=== PATIENT | female | born 1985 | race Caucasian/White ===

== ENCOUNTER 2021-11-20 21:11 | Outpatient (REF) | payer OTHER, SELFPAY ==
[2021-11-20 22:26] LABS: Free T4 Free Thyroxine* 0.64 ng/dL (0.70-1.85)
[2021-11-20 22:40] LABS: Thyroid Stimulating Hormone* 0.721 uIU/mL (0.270-4.20)
== END 2021-11-20 21:12 | disposition home or self-care (01) ==
LOC: LAB 21:11
DX: E03.9 Hypothyroidism, unspecified (principal)
CPT/HCPCS: 36415; 84439; 84443

== ENCOUNTER 2021-12-26 15:59 | Outpatient (CLI) | payer OTHER, SELFPAY ==
--- NOTE | 2021-12-26 15:45 | CRLHL7_ITS ---
For Patients: As a result of the Century Cures Act, medical imaging exams and procedure reports are released immediately into your electronic medical record. You may view this report before your referring provider. If you have questions, please contact your health care provider. INDICATION: First trimester scan, establish dates. COMPARISON: None. TECHNIQUE: Real-time guevara-scale imaging of the pelvis was performed. FINDINGS: Sonographic imaging demonstrates a single living intrauterine gestation. The embryo demonstrates a regular cardiac rate measuring 177 beats per minute. The embryo`s crown-rump length measurement of 4.3 cm corresponds to a gestational age of 11 weeks 1 day with a sonographic due date of 07/16/2022. There is a normal-appearing yolk sac. There are no gross abnormalities noted within the embryo at this early state of development. The gestational sac has a normal appearance. There is a right-sided perigestational hemorrhage measuring 3.1 x 0.8 x 0.6 cm and an inferior subchorionic hemorrhage measuring 1.3 x 0.6 x 0.8 cm. The amount of fluid within the sac appears appropriate for gestational age. The cervix is closed. The myometrium appears normal. The ovaries are of normal size. Corpus luteal cyst left ovary. There are no suspicious fluid collections noted in the cul-de-sac. IMPRESSION: Gestational age calculated at 11 weeks 1 day with a sonographic due date of 07/16/2022. There are 2 subchorionic hemorrhages measuring 3.1 x 0.8 x 0.6 cm and 1.3 x 0.6 x 0.8 cm. Dictated by Mauri Phelan MD @ 12/27/2021 9:06:17 AM (Electronically Signed)
== END 2021-12-26 16:00 | disposition home or self-care (01) ==
LOC: US 15:59
DX: Z34.91 Encounter for supervision of normal pregnancy, unspecified, first trimester (principal); O20.9 Hemorrhage in early pregnancy, unspecified; Z3A.11 11 weeks gestation of pregnancy
CPT/HCPCS: 76801

== ENCOUNTER 2022-07-02 18:52 | Emergency (ER) | payer OTHER, SELFPAY ==
[2022-07-02 18:56] VITALS: BP 115/76; PULSE 92; RESP 16; TEMP 36.9; O2SAT 98; BMI 24.2
[2022-07-02] MEDS: PSEUDOEPHEDRINE HCL 30 MG TABLET PO (19:51)
--- NOTE | 2022-07-02 20:03 | ED_ITS ---
HPI - General Adult General Chief complaint: Ear/Nose/Throat Problem Stated complaint: Possible double ear infection Time Seen by Provider: 07/02/22 18:56 History of Present Illness HPI narrative: 37-year-old woman presenting to the emergency department concern of ear fullness and discomfort muffled now feeling like cotton balls in her ears. Says she needs to be able to hear in her home. Began in the left ear and seems to have migrated to the right. She has not noted herself to be terribly congested. No facial pain. No environmental allergies noted. Has 5 kids 8 in under youngest is 18 months. She has not had any fever. Has been unwell with some URI symptoms and a little cough. No sore throat now. There has been strep present in the house. no dental problems. For her ear discomfort has tried olive oil with garlic in it. Also tried ibuprofen. Related Data Home Medications Medication Instructions Recorded Confirmed thyroid (pork) 90 mg tablet (RANGE TECHNICIAN 90 mg PO DAILY 07/02/22 07/02/22 Thyroid) Allergies Allergy/AdvReac Type Severity Reaction Status Date / Time No Known Drug Allergies Allergy Verified 07/02/22 19:05 Review of Systems Status of ROS: Reports: 6 or more systems reviewed and unremarkable except as noted in History and below Exam Narrative: Exam Narrative: Pleasant. Carefully casually groomed. Breathing easily. NAD. Does not sound particularly congested. Head is atraumatic. There is no facial swelling erythema or tenderness. Left TM is retracted. Ear canal looks to be clear. Right TM more inflamed but transparent. Also a little retracted. Mild in flammation without edema in the ear canal but no tenderness to manipulation of the tragus or pinna. Neck is supple without lymphadenopathy. no trismus. Oropharynx is without evidence of inflammation. Dentition in good repair. Lungs are clear. Heart with mildly elevated rate and in a normal rhythm. Const: Vital Signs, click to edit/add: Vital Signs - 24 hr 07/02/22 18:56 Temperature 98.5 F Pulse Rate [Right Pulse Oximeter] 92 Respiratory Rate 16 Blood Pressure [Ri ght Upper Arm] 115/76 Pulse Oximetry 98 Oxygen Delivery Me thod Room Air Documenting provider has reviewed patient's vital signs: yes Course Vital Signs Vital signs: Initial Vital Signs Temperature 98.5 F 07/02/22 18:56 Temperature Source Temporal Artery Scan 07/02/22 18:56 Pulse Rate 92 07/02/22 18:56 Respiratory Rate 16 07/02/22 18:56 Blood Pressure 115/76 07/02/22 18:56 Blood Pressure Mean 89 07/02/22 18:56 Blood Pressure Position Sitting 07/02/22 18:56 Pulse Oximetry 98 07/02/22 18:56 Oxygen Delivery Method 07/02/22 18:56 Vital Signs Temperature 98.5 F 07/02/22 18:56 Pulse Rate 92 07/02/22 18:56 Respiratory Rate 16 07/02/22 18:56 Blood Pressure 115/76 07/02/22 18:56 Pulse Oximetry 98 07/02/22 18:56 Oxygen Delivery Method 07/02/22 18:56 Temperature 98.5 F 07/02/22 18:56 Pulse Rate 92 07/02/22 18:56 Respiratory Rate 16 07/02/22 18:56 Blood Pressure 115/76 07/02/22 18:56 Pulse Oximetry 98 07/02/22 18:56 Oxygen Delivery Method 07/02/22 18:56 Medical Decision Making MDM Narrative Medical decision making narrative: Seems to be suffering from some eustachian tube dysfunction. I do not see evidence of secondary bacterial infection. Has not yet tried decongestants. Does not seem to have sinusitis nor otitis media or otitis externa. tmj does not appear to be source of pain. Due to time of night ordered shorter acting pseudoephedrine here in the emergency department prior to departure. See patient discharge plan Discharge Plan Discharge Clinical Impression: Dysfunction of both eustachian tubes, URI (upper respiratory infection) Patient Disposition: Home, Self-Care Condition: Stable Additional Instructions: Focus on hydration. Consider sleeping under the mist of a cool mist humidifier. Menthol vapors might be helpful. I would try 12 hour pseudoephedrine for drying and decongestion to help mobilize fluids. Since you do not seem to have a much nasopharyngeal congestion I am not sure whe ther nasal saline rinses would be that helpful but they would not hurt. Take the prednisone as 60 mg daily for 2 days; try to work toward earlier in the day dosing if possible, though take 1st dose as soon as possible. Then 40 mg daily for days 3 through 5. Both the pseudoephedrine and prednisone can be stimulating. Diphenhydramine can be drying for some persons and might also help with any potential wakefulness that pseudoephedrine and prednisone might cause. You might well not feel any stimulating effects either. Can take up to 800 mg of ibuprofen or up to 1000 mg of acetaminophen per dose. Return for marked increase in pain, fever. Be seen in 5- 7 days if just not improved. Prednisone from [facility]. Prescriptions: No Action thyroid (pork) [RANGE TECHNICIAN Thyroid] 90 mg tablet 90 mg PO DAILY Stand Alone Forms: [employer] Info Instructions
== END 2022-07-02 19:59 | disposition home or self-care (01) ==
LOC: ED 19:52
PROVIDERS: Emergency Provider Family Medicine
DX: H69.83 Other specified disorders of Eustachian tube, bilateral (principal); J06.9 Acute upper respiratory infection, unspecified
CPT/HCPCS: 99283; A9270

== ENCOUNTER 2022-12-31 20:59 | Emergency (ER) | payer OTHER, SELFPAY ==
[2022-12-31] VITALS (13 sets, daily range): BP systolic 104–123; BP diastolic 61–79; PULSE 65–84; RESP 16–18; TEMP 36.6; O2SAT 97–100; BMI 22.6
--- NOTE | 2022-12-31 21:41 | ED_ITS ---
HPI - Chest Pain General Time Seen by Provider: 21:41 <Bhargavi Deras MD - Last Filed: 01/07/23 01:19> Date Seen: 12/31/22 <Bhargavi Deras MD - Last Filed: 01/07/23 01:19> Chief Complaint: Chest Pain <Bhargavi Deras MD - Last Filed: 01/07/23 01:19> Stated Complaint: Chest pain <Bhargavi Deras MD - Last Filed: 01/07/23 01:19> Time Seen by Provider: 12/31/22 21:40 <Bhargavi Deras MD - Last Filed: 01/07/23 01:19> Source: patient and RN notes reviewed <Bhargavi Deras MD - Last Filed: 01/07/23 01:19> Mode of arrival: ambulatory <Bhargavi Deras MD - Last Filed: 01/07/23 01:19> Limitations: no limitations <Bhargavi Deras MD - Last Filed: 01/07/23 01:19> History of Present Illness HPI narrative: This 37-year-old female is coming in with substernal to left-sided chest pain that started tonight while sitting on the couch. She was just sitting there quietly with her children. She started having pain in the chest. She has had gas pain before where she has eaten something wrong it will build. This feels different. It is in the left-sided chest, she does get some intermittent building and worsening. It is not really radiating anywhere. She can feel little discomfort on the left costochondral junction but it does not completely reproduce the pain. She is not short of breath with it. She has not had any cough or cold symptoms. No fevers chills. No nausea vomiting or abdominal symptoms with this. Does not seem to be positional. Her discomfort level is not bad enough that she needs anything for pain at this point. She has had no reflux or regurgitant symptoms with it. She notes she has really thirsty, did want to know if she could drink some water. She has no prior cardiac or respiratory issues. No recent prolonged travel. She is not on any oral contraceptives, just completed her menstrual cycle. Does have 5 children. Her siblings and parents have no cardiopulmonary history. There is a paternal grandmother whom has had a bypass. Pain is definitely intermittent for her. Does not note any difficulty swallowing. No difficulty breathing. She notes no headache or neck pain with this but did feel a little dizzy or lightheaded at times, no spinning sensation. <Bhargavi Deras MD - Last Filed: 01/07/23 01:19> MD complaint: chest discomfort <Bhargavi Deras MD - Last Filed: 01/07/23 01:19> Related Data Home Medications: Home Medications Medication Instructions Recorded Confirmed thyroid (pork) 90 mg tablet (SENIOR CLIMATE ADVISOR 90 mg PO DAILY 07/02/22 07/02/22 Thyroid) <Bhargavi Deras MD - Last Filed: 01/07/23 01:19> Allergies/Adverse Reactions: Allergies Allergy/AdvReac Type Severity Reaction Status Date / Time No Known Drug Allergies Allergy Verified 07/02/22 19:05 <Bhargavi Deras MD - Last Filed: 01/07/23 01:19> Review of Systems Status of ROS Reports: 6 or more systems reviewed and unremarkable except as noted in History and below <Bhargavi Deras MD - Last Filed: 01/07/23 01:19> [facility] Medical History: Medical History (Updated 01/01/23 @ 00:13 by Mauri Alicia MD) Hypothyroid ?E03.9 - Hypothyroidism, unspecified (ICD-10) <Bhargavi Deras MD - Last Filed: 01/07/23 01:19> Social History: Social History Smoking Status: Never smoker Do you use any of these nicotine containing products: None How often do you have a drink containing alcohol: monthly or less AUDIT-C Alcohol total score: 1 Non-prescribed substance use: denies use <Bhargavi Deras MD - Last Filed: 01/07/23 01:19> Exam Const Vital Signs, click to edit/add: Vital Signs - 24 hr 12/31/22 21:06 12/31/22 21:19 12/31/22 21:30 Temperature 97.9 F Pulse Rate 80 72 Pulse Rate [Left Pulse Oximeter] 84 Respiratory Rate 18 Blood Pressure Blood Pressure [Right Upper Arm] 123/79 Pulse Oximetry 98 98 99 Oxygen Delivery Method Room Air 12/31/22 21:31 12/31/22 21:45 12/31/22 21:49 Temperature Pulse Rate 72 78 Pulse Rate [Left Pulse Oximeter] Respiratory Rate Blood Pressure 106/66 Blood Pressure [Right Upper Arm] Pulse Oximetry 99 100 99 Oxygen Delivery Method 12/31/22 22:00 12/31/22 22:15 12/31/22 22:30 Temperature Pulse Rate 73 68 77 Pulse Rate [Left Pulse Oximeter] Respiratory Rate Blood Pressure Blood Pressure [Right Upper Arm] Pulse Oximetry 97 97 98 Oxygen Delivery Method 12/31/22 22:32 12/31/22 22:45 12/31/22 23:01 Temperature Pulse Rate 70 65 71 Pulse Rate [Left Pulse Oximeter] Respiratory Rate 16 Blood Pressure 108/70 104/71 Blood Pressure [Right Upper Arm] Pulse Oximetry 100 100 98 Oxygen Delivery Method 12/31/22 23:31 01/01/23 00:01 01/01/23 00:01 Temperature 98.2 F Pulse Rate 69 79 79 Pulse Rate [Left Pulse Oximeter] Respiratory Rate 16 16 16 Blood Pressure 106/61 104/74 108/81 Blood Pressure [Right Upper Arm] Pulse Oximetry 99 98 98 Oxygen Delivery Method 01/01/23 00:18 01/01/23 00:20 Temperature 98.2 F 98.2 F Pulse Rate Pulse Rate [Left Pulse Oximeter] 84 84 Respiratory Rate 16 16 Blood Pressure Blood Pressure [Right Upper Arm] 108/81 108/81 Pulse Oximetry 98 Oxygen Delivery Method Room Air Very pleasant 37-year-old female sitting in the bed in exam room 5. She is alert, interactive, no apparent distress. Symmetrical facial function, able speak in complete sentences. Neck is supple, no jugular venous distension, no cervical adenopathy, no thyromegaly masses or nodules. Able to sit up, lungs are clear, good air entry, no wheezing or crackles, no tachypnea. She has some very minimal tenderness on the upper left costochondral junctions superiorly but this does not completely reproduce her pain. She describes as more of a discomfort. CV regular rate and rhythm, no murmur, normal S1 and S2. Abdomen is soft, no rebound or guarding, no organomegaly, nontender, nondistended. She has no lower extremity edema. Patient was ambulatory into the ED of her own accord. <Bhargavi Deras MD - Last Filed: 01/07/23 01:19> Vital Signs - 24 hr 12/31/22 21:06 12/31/22 21:19 12/31/22 21:30 Temperature 97.9 F Pulse Rate 80 72 Pulse Rate [Left Pulse Oximeter] 84 Respiratory Rate 18 Blood Pressure Blood Pressure [Right Upper Arm] 123/79 Pulse Oximetry 98 98 99 Oxygen Delivery Method Room Air 12/31/22 21:31 12/31/22 21:45 12/31/22 21:49 Temperature Pulse Rate 72 78 Pulse Rate [Left Pulse Oximeter] Respiratory Rate Blood Pressure 106/66 Blood Pressure [Right Upper Arm] Pulse Oximetry 99 100 99 Oxygen Delivery Method 12/31/22 22:00 12/31/22 22:15 12/31/22 22:30 Temperature Pulse Rate 73 68 77 Pulse Rate [Left Pulse Oximeter] Respiratory Rate Blood Pressure Blood Pressure [Right Upper Arm] Pulse Oximetry 97 97 98 Oxygen Delivery Method 12/31/22 22:32 12/31/22 22:45 12/31/22 23:01 Temperature Pulse Rate 70 65 71 Pulse Rate [Left Pulse Oximeter] Respiratory Rate 16 Blood Pressure 108/70 104/71 Blood Pressure [Right Upper Arm] Pulse Oximetry 100 100 98 Oxygen Delivery Method 12/31/22 23:31 01/01/23 00:01 01/01/23 00:01 Temperature 98.2 F Pulse Rate 69 79 79 Pulse Rate [Left Pulse Oximeter] Respiratory Rate 16 16 16 Blood Pressure 106/61 104/74 108/81 Blood Pressure [Right Upper Arm] Pulse Oximetry 99 98 98 Oxygen Delivery Method 01/01/23 00:18 01/01/23 00:20 Temperature 98.2 F 98.2 F Pulse Rate Pulse Rate [Left Pulse Oximeter] 84 84 Respiratory Rate 16 16 Blood Pressure Blood Pressure [Right Upper Arm] 108/81 108/81 Pulse Oximetry 98 Oxygen Delivery Method Room Air <Mauri Alicia MD - Last Filed: 01/01/23 15:08> Documenting provider has reviewed patient's vital signs: yes <Bhargavi Deras MD - Last Filed: 01/07/23 01:19> Course Course ED Course: This is a 37-year-old female with some atypical left-sided intermittent chest discomfort. She declines anything for pain management at this time. In this otherwise healthy 37-year-old female, I do think other alternate etiologies rather than coronary artery disease are much more likely. We will await some of her workup before trialing any medications, she agrees to let us know if she is worsening. We will start with a portable chest x-ray. She understands that if her D-dimer is elevated she may need chest CT imaging. We will get full complement of labs. We will start with point of care troponin now. Will do 1 in about 90 minutes from now and that will be certainly a bit over 3 hours from the onset of symptoms. Thromboembolic disease, cardiac pulmonary are all possible. This could be musculoskeletal, doubt esophageal or referred pain from her abdomen or gastric issues causing this. Have reviewed with patient that I will be leaving shortly, cares will be signed over to my partner Dr. Alicia. <Bhargavi Deras MD - Last Filed: 01/07/23 01:19> Reevaluation(s) Reevaluation #1: Received this patient at change of shift pending laboratory evaluation and imaging. Reviewing symptoms describes some intermittent nature of this discomfort. Not affected by anything, any movement or positioning. Has occurred during monitoring here in the emergency department. No alarms. She does describe a history of PACs. These seem to have been to be more around time of . Labs are overall reassuring. Troponins x2 are negative. ProBNP is normal. White count normal. D-dimer normal. Chest x-ray is unremarkable by my review. Repeat EKG looks to be unchanged by my review. Differential still includes pericarditis but I wondering if these may actually be some PVCs. Have not been able to see them to correlate with chest discomfort. Absent discomfort during time of our conversation See patient discharge <Mauri Alicia MD - Last Filed: 01/01/23 15:08> Vital Signs Vital signs: Initial Vital Signs Temperature 97.9 F 12/31/22 21:06 Temperature Source Temporal Artery Scan 12/31/22 21:06 Pulse Rate 84 12/31/22 21:06 Respiratory Rate 18 12/31/22 21:06 Blood Pressure 123/79 12/31/22 21:06 Blood Pressure Mean 93 12/31/22 21:06 Blood Pressure Position Sitting 12/31/22 21:06 Pulse Oximetry 98 12/31/22 21:06 Oxygen Delivery Method Room Air 12/31/22 21:06 Vital Signs Temperature 97.9 F 12/31/22 21:06 Pulse Rate 84 12/31/22 21:06 Respiratory Rate 18 12/31/22 21:06 Blood Pressure 123/79 12/31/22 21:06 Pulse Oximetry 98 12/31/22 21:06 Oxygen Delivery Method Room Air 12/31/22 21:06 Temperature 98.2 F 01/01/23 00:20 Pulse Rate 84 01/01/23 00:20 Respiratory Rate 16 01/01/23 00:20 Blood Pressure 108/81 01/01/23 00:20 Pulse Oximetry 98 01/01/23 00:18 Oxygen Delivery Method Room Air 01/01/23 00:18 <Bhargavi Deras MD - Last Filed: 01/07/23 01:19> Initial Vital Signs Temperature 97.9 F 12/31/22 21:06 Temperature Source Temporal Artery Scan 12/31/22 21:06 Pulse Rate 84 12/31/22 21:06 Respiratory Rate 18 12/31/22 21:06 Blood Pressure 123/79 12/31/22 21:06 Blood Pressure Mean 93 12/31/22 21:06 Blood Pressure Position Sitting 12/31/22 21:06 Pulse Oximetry 98 12/31/22 21:06 Oxygen Delivery Method Room Air 12/31/22 21:06 Vital Signs Temperature 97.9 F 12/31/22 21:06 Pulse Rate 84 12/31/22 21:06 Respiratory Rate 18 12/31/22 21:06 Blood Pressure 123/79 12/31/22 21:06 Pulse Oximetry 98 12/31/22 21:06 Oxygen Delivery Method Room Air 12/31/22 21:06 Temperature 98.2 F 01/01/23 00:20 Pulse Rate 84 01/01/23 00:20 Respiratory Rate 16 01/01/23 00:20 Blood Pressure 108/81 01/01/23 00:20 Pulse Oximetry 98 01/01/23 00:18 Oxygen Delivery Method Room Air 01/01/23 00:18 <Mauri Alicia MD - Last Filed: 01/01/23 15:08> MDM - Chest Pain Lab Data Attestation: I reviewed the patient's lab results. <Bhargavi Deras MD - Last Filed: 01/07/23 01:19> I reviewed the patient's lab results. <Mauri Alicia MD - Last Filed: 01/01/23 15:08> Labs: Lab Results 12/31/22 12/31/22 12/31/22 Range/Units 21:49 22:00 23:15 WBC 5.19 (4.50-11.00) K/uL RBC 4.23 (4.00-5.20) m/uL Hgb 11.8 L (12.0-16.0) gm/dL Hct 35.4 (33.0-51.0) % MCV 84 (80-100) fL MCH 28 (26-34) pg MCHC 33 (32-36) gm/dL RDW Coeff of [place] 13.3 (11.5-15.5) % Plt Count 344 (140-440) K/uL Neut % (Auto) 42.3 (42.0-72.0) % Lymph % (Auto) 47.8 H (20-44) % [place] % (Auto) 6.0 (0.0-11.0) % Eos % (Auto) 2.9 (0.0-7.0) % Baso % (Auto) 0.4 (0.0-3.0) % Neut # (Auto) 2.20 (1.7-7.0) K/uL Lymph # (Auto) 2.50 (0.90-2.90) K/uL [place] # (Auto) 0.30 (0.00-0.90) K/UL Eos # (Auto) 0.15 (0.00-0.50) K/uL Baso # (Auto) 0.02 (0.00-0.30) K/uL Abs Immat Gran (auto) 0.03 (0.00-0.30) K/uL Imm/Tot Granulo (auto) 0.6 % D-Dimer Quant (PE/DVT) < 0.27 (0.00-0.50) ug/ml Sodium 138 (135-149) mmol/L Potassium 3.8 (3.6-5.1) mmol/L Chloride 105 (96-114) mmol/L Carbon Dioxide 26 (20-32) mmol/L Anion Gap 7 (7-15) mEq/L BUN 14 (5-24) mg/dL Creatinine 0.8 (0.5-1.5) mg/dL Estimated Creat Clear 90.13 Estimated GFR 97 ml/min Glucose 93 (60-115) mg/dL Lactate 1.1 (0.5-1.9) mmol/L Calcium 9.3 (8.4-10.6) mg/dL Total Bilirubin 0.5 (0.1-1.5) mg/dL AST 18 (12-35) U/L ALT 13 (4-35) U/L Alkaline Phosphatase 58 (40-150) U/L C-Reactive Protein < 0.5 L (0.5-1.0) mg/dL NT-Pro-B Natriuret Pep < 20 pg/mL Total Protein 7.3 (6.0-8.3) g/dL Albumin 4.2 (3.3-5.0) g/dL Lipase 156 (23-300) U/L POC Troponin I 0.00 L 0.00 L (0.01-0.04) ng/ml <Bhargavi Deras MD - Last Filed: 01/07/23 01:19> Lab Results 12/31/22 12/31/22 12/31/22 Range/Units 21:49 22:00 23:15 WBC 5.19 (4.50-11.00) K/uL RBC 4.23 (4.00-5.20) m/uL Hgb 11.8 L (12.0-16.0) gm/dL Hct 35.4 (33.0-51.0) % MCV 84 (80-100) fL MCH 28 (26-34) pg MCHC 33 (32-36) gm/dL RDW Coeff of [place] 13.3 (11.5-15.5) % Plt Count 344 (140-440) K/uL Neut % (Auto) 42.3 (42.0-72.0) % Lymph % (Auto) 47.8 H (20-44) % [place] % (Auto) 6.0 (0.0-11.0) % Eos % (Auto) 2.9 (0.0-7.0) % Baso % (Auto) 0.4 (0.0-3.0) % Neut # (Auto) 2.20 (1.7-7.0) K/uL Lymph # (Auto) 2.50 (0.90-2.90) K/uL [place] # (Auto) 0.30 (0.00-0.90) K/UL Eos # (Auto) 0.15 (0.00-0.50) K/uL Baso # (Auto) 0.02 (0.00-0.30) K/uL Abs Immat Gran (auto) 0.03 (0.00-0.30) K/uL Imm/Tot Granulo (auto) 0.6 % D-Dimer Quant (PE/DVT) < 0.27 (0.00-0.50) ug/ml Sodium 138 (135-149) mmol/L Potassium 3.8 (3.6-5.1) mmol/L Chloride 105 (96-114) mmol/L Carbon Dioxide 26 (20-32) mmol/L Anion Gap 7 (7-15) mEq/L BUN 14 (5-24) mg/dL Creatinine 0.8 (0.5-1.5) mg/dL Estimated Creat Clear 90.13 Estimated GFR 97 ml/min Glucose 93 (60-115) mg/dL Lactate 1.1 (0.5-1.9) mmol/L Calcium 9.3 (8.4-10.6) mg/dL Total Bilirubin 0.5 (0.1-1.5) mg/dL AST 18 (12-35) U/L ALT 13 (4-35) U/L Alkaline Phosphatase 58 (40-150) U/L C-Reactive Protein < 0.5 L (0.5-1.0) mg/dL NT-Pro-B Natriuret Pep < 20 pg/mL Total Protein 7.3 (6.0-8.3) g/dL Albumin 4.2 (3.3-5.0) g/dL Lipase 156 (23-300) U/L POC Troponin I 0.00 L 0.00 L (0.01-0.04) ng/ml <Mauri Alicia MD - Last Filed: 01/01/23 15:08> Imaging Data Chest x-ray: Attestation: I have reviewed the pertinent imaging results. <Bhargavi Alcala MD - Last Filed: 01/07/23 01:19> Radiologist's impression: Patient: MARY CRUZ Facility:?[facility] Patient ID:?[id number] Site Patient ID:?[id number]. Site :?[id number] Study:?XRay Chest [place] ONE VIEW-12/31/2022 10:18:21 PM Ordering Physician:Bubba Burk Final Report: INDICATION: CT chest 10/30/2017 TECHNIQUE: Chest radiographs, 1 view. COMPARISON: None. FINDINGS: Lines/Tubes/Devices: None. Mediastinum: Normal cardiac silhouette. Lungs: No focal consolidation. Pleura: No pleural effusions or pneumothorax. Bones: No acute osseous abnormalities. Soft tissues: Unremarkable. IMPRESSION: No acute cardiopulmonary process. Dictated by Dimitry Yanes MD @ 12/31/2022 10:53:41 PM (Electronic Signature) <Bhargavi Deras MD - Last Filed: 01/07/23 01:19> ECG Data Attestation: I personally reviewed and interpreted this ECG as follows: (Sinus rhythm, 79 beats per minute. Flattened T-waves 3 and V2, flipped in V1 without any ST segment change. More flat in the 3. No definitive ischemia but no prior EKG to compare to. QT corrected 460 milliseconds.) <Bhargavi Deras MD - Last Filed: 01/07/23 01:19> ECG interpretation date: 12/31/22 <Bhargavi Deras MD - Last Filed: 01/07/23 01:19> ECG interpretation time: 22:02 <Bhargavi Deras MD - Last Filed: 01/07/23 01:19> Discharge Plan Discharge Clinical Impression: Atypical chest pain <Bhargavi Deras MD - Last Filed: 01/07/23 01:19> Patient Disposition: Home w/ Parent or Adult <Bhargavi Deras MD - Last Filed: 01/07/23 01:19> Condition: Improved <Bhargavi Deras MD - Last Filed: 01/07/23 01:19> Additional Instructions: Stay well-hydrated. I do not think you need to restrict yourself from any particular activity at this point. Return for persistent/increasing chest discomfort particularly associated with lightheadedness, shortness of breath, nausea. Would consider follow-up with your primary care provider to work this up further if you continue to have brief intermittent bouts of this. Might benefit from some days of cardiac electrical monitoring? <Bhargavi Deras MD - Last Filed: 01/07/23 01:19> Prescriptions: No Action thyroid (pork) [SENIOR CLIMATE ADVISOR Thyroid] 90 mg tablet 90 mg PO DAILY <Bhargavi Deras MD - Last Filed: 01/07/23 01:19> Follow Up/Referrals: Provider,Not a Local [Primary Care Provider] - <Bhargavi Deras MD - Last Filed: 01/07/23 01:19> Stand Alone Forms: [employer] Info Instructions <Bhargavi Deras MD - Last Filed: 01/07/23 01:19>
--- NOTE | 2022-12-31 21:49 | CRLHL7_ITS ---
For Patients: As a result of the Cures Act, medical imaging exams and procedure reports are released immediately into your electronic medical record. You may view this report before your referring provider. If you have questions, please contact your health care provider. INDICATION: CT chest 10/30/2017 TECHNIQUE: Chest radiographs, 1 view. COMPARISON: None. FINDINGS: Lines/Tubes/Devices: None. Mediastinum: Normal cardiac silhouette. Lungs: No focal consolidation. Pleura: No pleural effusions or pneumothorax. Bones: No acute osseous abnormalities. Soft tissues: Unremarkable. IMPRESSION: No acute cardiopulmonary process. Dictated by Dimitry Yanes MD @ 12/31/2022 10:53:41 PM (Electronically Signed)
--- OUTSIDE RECORDS SUMMARY | 2022-12-31 21:58 | XMS_ITS | Continuity of Care Document ---
Author Name Unknown Organization [facility] Address [address] [address] [place] [address] Phone Care Team Providers Care Tire Recapper Name Role Phone Prosper Potter MD, Kameron Mckeon Advance Directives Directive Yes / No Effective Date File Name No Information Encounters Encounter Description Practice Location Reason(s) For Visit Diagnoses Date Provider Providers Copied on Encounter [facility], [address] [address], [place], [place], [id number], [place] tel:[phone] [facility] No Information Prosper Melo. [address] [facility], [facility] [address], [place], [place], [address], [place]. tel:[phone] Family History Family Member Type Diagnosis Age At Onset No Information Payers Payer name Insurance type Covered alliance party ID Authoriza tion(s) No Information Social History Type Description Quantity Date Captured Comments Sex Female Smoking Status No Information Chief Complaint And Reason For Visit No Information Reason For Referral Reason For Referral No Information Plan Of Treatment Date Type Action Status Appointment César Moreno BOOKED History Of Present Illness Encounter Date Complaint History Of Prese nt Illness No Information Functional Status Date Functional Assessmen t No Information Instructions Date Instruction Additional Infor mation No Information Assessments Type Assessment Date No Information Patient Care Teams Name Effective Dates (start - stop) Status Members No Information
--- OUTSIDE RECORDS SUMMARY | 2022-12-31 21:58 | XMS_ITS | Patient Health Record ---
Author Name Unknown Organization [facility] S Address [address] [id number] Care Team Providers Care Transplant Worker Name Role Phone Baron MARTINEZ, Radha Primary Care Provider ALLERGIES No Known Allergies REASON FOR REFERRAL No Information MEDICATIONS Medication SIG (Take, Route, Fr equency, Duration) Notes Start Date End Date Status RN CIRCULATING Thyroid 90 MG TAKE 1 TABLET BY LAZ TH EVERY DAY ON AN EMPTY STOMACH for 90 A ctive Sertraline HCl 50 MG TAKE 1 TABLET BY MO UTH EVERY DAY for 90 Active SOCIAL HISTORY Tobacco Use: Social History Observation Description Date Details (start date - stop date) Never Smoker NA - NA Sex Assigned At : Social History Observation Description Sex Assigned At Unknown Tobacco Status Question Answer Notes I am: never smoker PROBLEMS Problem Type ICD Code Onset Dates Problem Status W/U Status Risk SNOMED Code Notes Problem Acquired hypothyroidism (E03.9) Active confirmed 398419062 Problem Recurrent major depression in remission (F33.40) Active confirmed 39173066 Problem Encounter for supervision of normal (Z34.90) Active confirmed Normal pregnanc y (78091574) Problem Pharyngeal dysphagia (R13.13) Active confirmed [id number] Problem Mild episode of recurrent major depressive disorder (F33.0) Active confirmed 164841209 Problem History of (Z98.891) Active confirmed 840116450 Encounters Encounter Location Date Provider Diagnosis [facility] [address] [facility] [address] [place], [place] [id number] 01/27/2022 Radha Draper PLAN OF TREATMENT No Information Insurance Providers Payer Name Payer Address Payer Phone Subscriber Number Group Number Insured Name Patient Relationship to Insured Coverage Start Date Coverage End Date Cigna [address] [place] [phone] [id number] César Moreno Self - patient is the insured 0 MEDICAL (GENERAL) HISTORY Surgical History Surgery Date(Month/Year) 01/16/05
[2022-12-31 22:12] LABS: Lactate* 1.1 mmol/L (0.5-1.9)
[2022-12-31 22:29] LABS: Albumin* 4.2 g/dL (3.3-5.0); Chloride* 105 mmol/L (96-114); Sodium* 138 mmol/L (135-149)
[2022-12-31 22:30] LABS: Potassium* 3.8 mmol/L (3.6-5.1)
[2022-12-31 22:31] LABS: Creatinine* 0.8 mg/dL (0.5-1.5); Est. Creatinine Clearance* 90.13; Estimated Glomerular Filt Rate 97 ml/min
[2022-12-31 22:32] LABS: Alkaline Phosphatase* 58 U/L (40-150); Anion Gap 7 mEq/L (7-15); Aspartate Amino Transferase* 18 U/L (12-35); Bilirubin Total* 0.5 mg/dL (0.1-1.5); Blood Urea Nitrogen* 14 mg/dL (5-24); Carbon Dioxide* 26 mmol/L (20-32); Lipase* 156 U/L (23-300); Total Protein* 7.3 g/dL (6.0-8.3)
[2022-12-31 22:33] LABS: Alanine Aminotransferase* 13 U/L (4-35); Calcium* 9.3 mg/dL (8.4-10.6); Glucose* 93 mg/dL (60-115)
[2022-12-31 22:35] LABS: Basophils Absolute Auto 0.02 K/uL (0.00-0.30); Basophils Percent Auto 0.4 % (0.0-3.0); Eosinophils Absolute Auto 0.15 K/uL (0.00-0.50); Eosinophils Percent Auto 2.9 % (0.0-7.0); Hematocrit 35.4 % (33.0-51.0); Hemoglobin* 11.8 gm/dL (12.0-16.0); Immature Granulocytes Abs Auto 0.03 K/uL (0.00-0.30); Immature Granulocytes Pct Auto 0.6 %; Lymphocytes Percent Auto 47.8 % (20-44); Mean Corpuscular HGB Conc 33 gm/dL (32-36); Mean Corpuscular Hemoglobin 28 pg (26-34); Mean Corpuscular Volume 84 fL (80-100); Neutrophils Percent Auto 42.3 % (42.0-72.0); Platelet Count* 344 K/uL (140-440); RDW Coefficient of Variation % 13.3 % (11.5-15.5); Red Blood Count 4.23 m/uL (4.00-5.20); White Blood Count* 5.19 K/uL (4.50-11.00)
[2022-12-31 22:36] LABS: C Reactive Protein* < 0.5 mg/dL (0.5-1.0); Slide Review Reflex No
[2022-12-31 22:43] LABS: NT Pro B Type NatriureticPept* < 20 pg/mL
[2022-12-31 22:47] LABS: D Dimer Quantitative* < 0.27 ug/ml (0.00-0.50)
[2023-01-01 00:01] VITALS: BP 104/74; BP 108/81; PULSE 79; RESP 16; TEMP 36.8; O2SAT 98
--- NOTE | 2023-01-01 00:11 | ED.GENADULT ---
HPI - General Adult General Chief complaint: Chest Pain Stated complaint: Chest pain Time Seen by Provider: 12/31/22 21:40 Source: patient and RN notes reviewed Mode of arrival: ambulatory Limitations: no limitations Related Data Home Medications Medication Instructions Recorded Confirmed thyroid (pork) 90 mg tablet (DETECTIVE YOUTH BUREAU 90 mg PO DAILY 07/02/22 07/02/22 Thyroid) Allergies Allergy/AdvReac Type Severity Reaction Status Date / Time No Known Drug Allergies Allergy Verified 07/02/22 19:05 [facility] Medical History (Updated 01/01/23 @ 00:13 by Mauri Alicia MD) Hypothyroid ?E03.9 - Hypothyroidism, unspecified (ICD-10) Social History Smoking Status: Never smoker Do you use any of these nicotine containing products: None How often do you have a drink containing alcohol: monthly or less AUDIT-C Alcohol total score: 1 Non-prescribed substance use: denies use Exam Const: Vital Signs, click to edit/add: Vital Signs - 24 hr 12/31/22 21:06 12/31/22 21:19 12/31/22 21:30 Temperature 97.9 F Pulse Rate 80 72 Pulse Rate [Left P ulse Oximeter] 84 Respiratory Rate 18 Blood Pressure Blood Pressure [Ri ght Upper Arm] 123/79 Pulse Oximetry 98 98 99 Oxygen Delivery Me thod Room Air 12/31/22 21:31 12/31/22 21:45 12/31/22 21:49 Temperature Pulse Rate 72 78 Pulse Rate [Left P ulse Oximeter] Respiratory Rate Blood Pressure 106/66 Blood Pressure [Ri ght Upper Arm] Pulse Oximetry 99 100 99 Oxygen Delivery Me thod 12/31/22 22:00 12/31/22 22:15 12/31/22 22:30 Temperature Pulse Rate 73 68 77 Pulse Rate [Left P ulse Oximeter] Respiratory Rate Blood Pressure Blood Pressure [Ri ght Upper Arm] Pulse Oximetry 97 97 98 Oxygen Delivery Me thod 12/31/22 22:32 12/31/22 22:45 12/31/22 23:01 Temperature Pulse Rate 70 65 71 Pulse Rate [Left P ulse Oximeter] Respiratory Rate 16 Blood Pressure 108/70 104/71 Blood Pressure [Ri ght Upper Arm] Pulse Oximetry 100 100 98 Oxygen Delivery Me thod 12/31/22 23:31 01/01/23 00:01 01/01/23 00:01 Temperature 98.2 F Pulse Rate 69 79 79 Pulse Rate [Left P ulse Oximeter] Respiratory Rate 16 16 16 Blood Pressure 106/61 104/74 108/81 Blood Pressure [Ri ght Upper Arm] Pulse Oximetry 99 98 98 Oxygen Delivery Me thod 01/01/23 00:18 01/01/23 00:20 Temperature 98.2 F 98.2 F Pulse Rate Pulse Rate [Left P ulse Oximeter] 84 84 Respiratory Rate 16 16 Blood Pressure Blood Pressure [Ri ght Upper Arm] 108/81 108/81 Pulse Oximetry 98 Oxygen Delivery Me thod Room Air Course Vital Signs Vital signs: Initial Vital Signs Temperature 97.9 F 12/31/22 21:06 Temperature Source Temporal Artery Scan 12/31/22 21:06 Pulse Rate 84 12/31/22 21:06 Respiratory Rate 18 12/31/22 21:06 Blood Pressure 123/79 12/31/22 21:06 Blood Pressure Mean 93 12/31/22 21:06 Blood Pressure Position Sitting 12/31/22 21:06 Pulse Oximetry 98 12/31/22 21:06 Oxygen Delivery Method Room Air 12/31/22 21:06 Vital Signs Temperature 97.9 F 12/31/22 21:06 Pulse Rate 84 12/31/22 21:06 Respiratory Rate 18 12/31/22 21:06 Blood Pressure 123/79 12/31/22 21:06 Pulse Oximetry 98 12/31/22 21:06 Oxygen Delivery Method Room Air 12/31/22 21:06 Temperature 98.2 F 01/01/23 00:20 Pulse Rate 84 01/01/23 00:20 Respiratory Rate 16 01/01/23 00:20 Blood Pressure 108/81 01/01/23 00:20 Pulse Oximetry 98 01/01/23 00:18 Oxygen Delivery Method Room Air 01/01/23 00:18 Medical Decision Making MDM Narrative Medical decision making narrative: Received at change of shift pending repeat troponin PVCs question Lab Data Labs: Lab Results 12/31/22 12/31/22 12/31/22 Range/Units 21:49 22:00 23:15 WBC 5.19 (4.50-11.00) K/uL RBC 4.23 (4.00-5.20) m/uL Hgb 11.8 L (12.0-16.0) gm/dL Hct 35.4 (33.0-51.0) % MCV 84 (80-100) fL MCH 28 (26-34) pg MCHC 33 (32-36) gm/dL RDW Coeff of Chica 13.3 (11.5-15.5) % Plt Count 344 (140-440) K/uL Neut % (Auto) 42.3 (42.0-72.0) % Lymph % (Auto) 47.8 H (20-44) % Sharkey % (Auto) 6.0 (0.0-11.0) % Eos % (Auto) 2.9 (0.0-7.0) % Baso % (Auto) 0.4 (0.0-3.0) % Neut # (Auto) 2.20 (1.7-7.0) K/uL Lymph # (Auto) 2.50 (0.90-2.90) K/uL Sharkey # (Auto) 0.30 (0.00-0.90) K/UL Eos # (Auto) 0.15 (0.00-0.50) K/uL Baso # (Auto) 0.02 (0.00-0.30) K/uL Abs Immat Gran (auto) 0.03 (0.00-0.30) K/uL Imm/Tot Granulo (auto) 0.6 % D-Dimer Quant (PE/DVT) < 0.27 (0.00-0.50) ug/ml Sodium 138 (135-149) mmol/L Potassium 3.8 (3.6-5.1) mmol/L Chloride 105 (96-114) mmol/L Carbon Dioxide 26 (20-32) mmol/L Anion Gap 7 (7-15) mEq/L BUN 14 (5-24) mg/dL Creatinine 0.8 (0.5-1.5) mg/dL Estimated Creat Clear 90.13 Estimated GFR 97 ml/min Glucose 93 (60-115) mg/dL Lactate 1.1 (0.5-1.9) mmol/L Calcium 9.3 (8.4-10.6) mg/dL Total Bilirubin 0.5 (0.1-1.5) mg/dL AST 18 (12-35) U/L ALT 13 (4-35) U/L Alkaline Phosphatase 58 (40-150) U/L C-Reactive Protein < 0.5 L (0.5-1.0) mg/dL NT-Pro-B Natriuret Pep < 20 pg/mL Total Protein 7.3 (6.0-8.3) g/dL Albumin 4.2 (3.3-5.0) g/dL Lipase 156 (23-300) U/L POC Troponin I 0.00 L 0.00 L (0.01-0.04) ng/ml Discharge Plan Discharge Clinical Impression: Atypical chest pain Patient Disposition: Home w/ Parent or Adult Condition: Improved Additional Instructions: Stay well-hydrated. I do not think you need to restrict yourself from any particular activity at this point. Return for persistent/increasing chest discomfort particularly associated with lightheadedness, shortness of breath, nausea. Would consider follow-up with your primary care provider to work this up further if you continue to have brief intermittent bouts of this. Might benefit from some days of cardiac electrical monitoring? Prescriptions: No Action thyroid (pork) [DETECTIVE YOUTH BUREAU Thyroid] 90 mg tablet 90 mg PO DAILY Follow Up/Referrals: Provider,Not a Local [Primary Care Provider] - Stand Alone Forms: [facility] Info Instructions
[2023-01-01 00:18] VITALS: BP 108/81; PULSE 84; RESP 16; TEMP 36.8; O2SAT 98
[2023-01-01 00:20] VITALS: BP 108/81; PULSE 84; RESP 16; TEMP 36.8
== END 2023-01-01 00:22 | disposition home or self-care (01) ==
PROVIDERS: Family Medicine; Emergency Provider Family Medicine
DX: R07.89 Other chest pain (principal)
CPT/HCPCS: 36415; 71045; 80053; 83605; 83690; 83880; 84484; 85025; 85379; 86140; 93005; 94761; 99284; 99285

== ENCOUNTER 2023-03-18 10:20 | Outpatient (CLI) | payer OTHER, SELFPAY ==
--- NOTE | 2023-03-18 10:15 | CRLHL7_ITS ---
For Patients: As a result of the Century Cures Act, medical imaging exams and procedure reports are released immediately into your electronic medical record. You may view this report before your referring provider. If you have questions, please contact your health care provider. INDICATION: Intermittent choking episodes primarily with solid foods over the last 1 year or so. TECHNIQUE: Recorded video swallow performed in conjunction with speech therapy. FINDINGS: The patient tolerated all preparations of barium well. No aspiration. No penetration. No holdup of barium. No evidence for a Zenker`s diverticulum. No evidence for esophageal dysmotility on this limited study. The patient was briefly evaluated in the AP projection and again the study was within normal limits. Please see detailed notes from speech therapy. 1 minute 51 seconds fluoroscopy time utilized. IMPRESSION: Normal recorded video swallow. Dictated by Anatoly Aldana MD @ 03/18/2023 11:11:04 AM (Electronically Signed)
--- OUTSIDE RECORDS SUMMARY | 2023-03-18 10:23 | XMS_ITS | Patient Health Record ---
Author Name Unknown Organization [facility] S Address [address] [id number] Care Team Providers Care Mine Captain Name Role Phone Baron MARTINEZ, Radha Primary Care Provider [phone] ALLERGIES No Known Allergies REASON FOR REFERRAL No Information MEDICATIONS Medication SIG (Take, Route, Fr equency, Duration) Notes Start Date End Date Status MIX HOUSE TENDER Thyroid 90 MG TAKE 1 TABLET BY [...] Notes Problem Acquired hypothyroidism (E03.9) Active confirmed 617471641 Problem Recurrent major depression in remission (F33.40) Active confirmed 63151362 Problem Encounter for supervision of normal (Z34.90) Active confirmed Normal pregnanc y (76976958) Problem Pharyngeal dysphagia (R13.13) Active confirmed 89825207060075 Problem Mild episode of recurrent major depressive disorder (F33.0) Active confirmed 291345051 Problem History of (Z98.891) Active confirmed [id number] PLAN OF TREATMENT No Information Insurance Providers Payer Name Payer Address Payer Phone Subscriber Number Group Number Insured Name Patient Relationship to Insured Coverage Start Date Coverage End Date Cigna [address] [place] [phone] [phone] [id number] César Moreno Self - patient is the insured 0 MEDICAL (GENERAL) HISTORY Surgical History Surgery Date(Month/Year) 01/16/05
== END 2023-03-18 10:21 | disposition home or self-care (01) ==
LOC: RAD 10:21
PROVIDERS: Visit Provider Internal Medicine
DX: R13.12 Dysphagia, oropharyngeal phase (principal)
CPT/HCPCS: 74230; 92611

== ENCOUNTER 2024-10-09 14:49 | Emergency (ER) | payer OTHER, SELFPAY ==
--- OUTSIDE RECORDS SUMMARY | 2023-05-08 23:30 | XMS_ITS | Continuity of Care Document ---
Author Organization [facility] Address [address] [address] [place] [address] Phone Care Team Providers Care Sewer Name Role Phone No Information Unavailable Unavailable Allergies, Adverse Reactions, Alerts Substance Reaction Status Criticality No Known Allergies Active No Inform ation Medications Medication Instructions Dosage Effective Dates (start - stop) Status Comments Hewlett Thyroid 90 mg tablet take 1 tablet by oral route every day 90 MG - Active Procedures Procedure Date Established Level 4 Soria PH Monitor Ugi Endo; W/bx 1/mx Level Iv-surg Path Gross/micro EGD w/Soria placement Office Cons New/estab Mod Routine Serum Collection Advance Directives Directive Yes / No Effective Date File Name No Information Encounters Encounter Description Practice Location Reason(s) For Visit Diagnoses Date Provider Providers Copied on Encounter [facility], [address] [address], [place], [place], [address], [place] tel:[phone] No Information No Information Established Level 4 [facility], [address] [address], [place], [place], [address], [place] tel:[phone] [facility] GI Symptoms or Concerns (chief complaint) Dysphagia, unspecifiedFor eign body sensation, throatAtypical chest pain Fred Rodriguez. [address] [facility], [facility] [address], [place], [place], [address], [place]. [phone] Referring Provider: Referral Self, USE FOR SELF REFERRALS. [facility], [address] [address], [place], [id number], [place] tel:[phone] [facility] Foreign body sensation, throat Mar- 2 3 Judy Adame. [address] [facility], [address], [id number], [place]. tel:[phone] Referring Provider: Carlos Clemente MD, [address] [place] [address], [address]. [phone] [facility], [address] [address], [place], [address], [place] tel:[phone] [facility] GI Symptoms or Concerns (chief complaint) Foreign body sensation, throatDysphagi a, oropharyngeal phaseEsophagea l inlet patchDysphagia , unspecifiedFor eign body sensation, throatDysphagi a, unspecified Mar- 3 Destiny Luu. [facility], [address], [id number], [place]. tel:[phone] Referring Provider: Referral Self, USE FOR SELF REFERRALS. [facility], [address] [address], [place], [address], [place] tel:[phone] [facility] Globus sensation 3 Chyna Gonzalez. [address] [place] [address], [facility] [address], [place], [address], [place]. tel:[phone] Office Cons New/estab Mod [facility], [address] [address], [place], [id number], [place] tel:[phone] [facility] GI Symptoms or Concerns (chief complaint) Globus sensationOroph aryngeal dysphagia 0 3 Chyna Gonzalez. [address] [place] [address], [address], [id number], [place]. tel:[phone] Referring Provider: Kika Shin, [address] [facility] [address], [place], [address]. tel:[phone] [facility], [address] [address], [place], [place], [address], [place] tel:[phone] [facility] No Information 3 Prosper Melo. [address] [facility], [facility] [address], [place], [place], [address], [place]. tel:[phone] Family History Family Member Type Diagnosis Age At Onset Father Problem (finding) Gallbladder disease Mother Problem (finding) Gallbladder disease Sister Problem (finding) Gallbladder disease Mother Problem (finding) Thyroid disorder Sister Problem (finding) Thyroid disorder Immunizations Vaccine Date Status Comments influenza virus vaccine, unspecified formulation administered Note: [facility] bi-di rectional interface ; Source: Other Registry influenza virus vaccine, unspecified formulation administered Note: [facility] bi-di rectional interface ; Source: Other Registry measles, mumps and rubella virus vaccine administered Note: [facility] bi-direct ional interface ; Source: Other Registry Payers Payer name Insurance type Covered republican ID Authoriza tion(s) No Information Social History Type Description Quantity Date Captured Comments Sex Female Smoking Status No Information Chief Complaint And Reason For Visit No Information Reason For Referral Reason For Referral No Information Plan Of Treatment Date Type Action Status Referral Ordered: Esophageal Motility Study Appointment date/timeframe: First Available ordered Referral Ordered: EGD Appointment date/timeframe: 04/07/2023 ordered Referral Ordered: Soria PH Monitor Appointment date/timeframe: 04/07/2023 ordered Referral Ordered: Video And Clinical Swallow With Speech Pathologist, Treatment As Indicated Appointment date/timeframe: 03/30/2023 ordered Referral Ordered: Xray Esophagus (Esophagram, Barium Swallow Study) Appointment date/timeframe: 03/30/2023 ordered History Of Present Illness Encounter Date Complaint History Of Prese nt Illness GI Symptoms or Concerns PRIOR DI AGNOSTICS-- Laboratories on 02/16/2023 - tTG-IgA less than 2, TSH is 0.507.-- Video fluoroscopic swallow study with FENCE ERECTOR SUPERVISOR on 03/18/2023 - the patient is a 37-year-old female, referred for a modified barium swallow due to intermittent globus sensation and coughing. She reports it does not happen all the time, but is happening more frequently and happened yesterday. She does not notice difficulty with liquids, just solids. She does have a history of reflux that she is aware of, except when she was - the patient exhibits a safe, functional swallow with no penetration, aspiration, or pharyngeal residue with any food or liquid consistency.-- EGD on 04/07/2023 for globus sensation, dysphagia - small inlet patch in the upper esophagus. Normal stomach. Normal duodenum. Biopsies taken of the duodenum were normal. Stomach biopsies were normal. Distal and mid esophageal biopsies were normal. A Soria pH probe was placed 6 cm above the GE junction.-- Soria pH GI Symptoms or Concerns GI Symptoms or Concerns This is a 37-year-old female with a past medical history of 4 vaginal deliveries and 1 C section, hypothyroidism currently taking pork thyroid who comes in for evaluation of globus sensation / oropharyngeal dysphagia. She is being sent to us for consultation by Kika Kaur MD. Patient notes that over the last year she is had oropharyngeal dysphagia and globus sensation. Patient will note that she will have this sensation for a few weeks at a time (the whole time) and then can go 1 week without having any symptoms and then symptoms will return. This has been occurring for about a year's time. Patient describes occasionally when she will try to eat solid foods she will note that she will have to cough if not she will feel like food gets stuck. Nothing particularly makes it better or worse.She has never had any food impaction. No odynophagia. No nausea or vomiting or heartburn. Patient does endorse some epigastric discomfort that has been occurring for years where she attributes it to functional bowel disease. Patient has a bowel movement daily with no blood in the stool. Patient has had no weight loss. Functional Status Date Functional Assessmen t No Information Instructions Date Instruction Additional Infor олег -- we will evaluate for any celiac disease and thyroid abnormalities that could be contributing to her overall symptoms-- we will evaluate to ensure that there is no structural abnormalities with swallow studies-- upper endoscopy we will evaluate structural abnormalities any microscopic changes that could be contributing to your symptoms. We will biopsy the esophagus and the stomach.-- we will proceed with SORIA pH study at the time of the upper endoscopy to ensure that heartburn is not contributing to any of your symptoms.-- If the above is all negative we will start low-dose acid juan.-- We will follow up how things have been going in 3 months. Related to Globus sensation Assessments Type Assessment Date No Information Patient Care Teams Name Effective Dates (start - stop) Status Members No Information
--- OUTSIDE RECORDS SUMMARY | 2023-05-08 23:30 | XMS_ITS | Continuity of Care Document ---
Author Organization [facility] Address [address] [address] [place] [address] Phone Care Team Providers Care [place]ble [place] Operator Name Role Phone No Information Unavailable Unavailable Allergies, Adverse Reactions, Alerts Substance Reaction Status Criticality No Known Allergies Active No Inform ation Medications Medication Instructions Dosage Effective Dates (start - stop) Status Comments [place] Thyroid 90 mg tablet take 1 tablet [...] Diagnoses Date Provider Providers Copied on Encounter [facility] JACOBY, [address] [address], [place], [place], [id number], [place] tel:[phone] No Information No Information Established Level 4 [facility], [address] [address], [place], [place], [id number], [place] tel:[phone] [facility] GI Symptoms or Concerns (chief complaint) Dysphagia, unspecifiedFor eign body sensation, throatAtypical chest pain Fred Rodriguez. [address] [facility], [facility] [address], [place], [place], [id number], [place]. [phone] Referring Provider: Referral Self, USE FOR SELF REFERRALS. [facility], [address] [address], [place], [id number], [place] tel:[phone] [facility] Foreign body sensation, throat Mar- 2 3 Judy Adame. [address] [facility], [address], [id number], [place]. tel:[phone] Referring Provider: Carlos Clemente MD, [address] [place] [address], [address]. [phone] [facility], [address] [address], [place], [id number], [place] tel:[phone] [facility] GI Symptoms or Concerns (chief complaint) Foreign body sensation, throatDysphagi a, oropharyngeal phaseEsophagea l inlet patchDysphagia , unspecifiedFor eign body sensation, throatDysphagi a, unspecified Mar- 3 Destiny Luu. [facility], [address], [id number], [place]. tel:[phone] Referring Provider: Referral Self, USE FOR SELF REFERRALS. [facility], [address] [address], [place], [id number], [place] tel:[phone] [facility] Globus sensation 3 Chyna Gonzalez. [address] [place] [address], [facility] [address], [place], [id number], [place]. tel:[phone] Office Cons New/estab Mod [facility], [address] [address], [place], [id number], [place] tel:[phone] [facility] GI Symptoms or Concerns (chief complaint) Globus sensationOroph aryngeal dysphagia 0 3 Chyna Gonzalez. [address] [place] [address], [address], [id number], [place]. tel:[phone] Referring Provider: Kika Shin, [address] [facility] [address], [place], [address]. tel:[phone] [facility], [address] [address], [place], [place], [id number], [place] tel:[phone] [facility] No Information 3 Prosper Melo. [address] [facility], [facility] [address], [place], [place], [id number], [place]. tel:[phone] Family History Family Member Type Diagnosis Age [...] is 0.507.-- Video fluoroscopic swallow study with ELECTRONIC DEVICE REPAIRER on 03/18/2023 - the patient is a [...]
--- OUTSIDE RECORDS SUMMARY | 2024-10-09 14:52 | XMS_ITS | Patient Health Record ---
Author Organization [facility] Address [address] [id number] Care Team Providers Care System Controller Name Role Phone Baron MARTINEZ, Radha Primary Care Provider Allergies No Known Allergies Reason For Referral No Information Medications Medication SIG (Take, Route, Fr equency, Duration) Notes Start Date End Date Status Sertraline HCl 50 MG TAKE 1 TABLET BY MO UTH EVERY DAY for 90 Active LIFE SKILLS TRAINER Thyroid 90 MG TAKE 1 TABLET BY LAZ TH EVERY DAY ON AN EMPTY STOMACH for 90 A ctive Social History Tobacco Use: Social History Observation Description Date Details (start date - stop date) Never Smoker NA - NA Tobacco Status Question Answer Notes I am: never smoker Problems Problem Type SNOMED Code ICD Code Onset Dates Problem Status W/U Status Risk Notes Problem 035671852 Acquired hypothyroidism (E03.9) Active confirmed Problem 24731317 Recurrent major depression in remission (F33.40) Active confirmed Problem 86330515562161 Pharyngeal dysphagia (R13.13) Active confirmed Problem 446025643 History of (Z98.891) Active confirmed Encounters Encounter Location Date Provider Diagnosis [facility] [address] [place], [place] [phone] 02/08/2024 Radha Draper [facility] [address] [facility] [place], [place] [phone] 02/08/2024 Radha Draper Plan Of Treatment No Information Insurance Providers Payer Name Payer Address Payer Phone Subscriber Number Group Number Insured Name Patient Relationship to Insured Coverage Start Date Coverage End Date [employer] [address] [place] [phone] [id number] César Moreno Self - patient is the insured 0 Medical (General) History Surgical History Surgery Date(Month/Year) 01/16/05
--- OUTSIDE RECORDS SUMMARY | 2024-10-09 14:52 | XMS_ITS | Clinical Summary ---
Author Organization [facility] Address [address] [place] [address]. [place] [address] Care Team Providers Care Mechanical Meter Tester Name Role Phone Radha Draper MD Primary Care Provider Allergies No known active allergies Medications Vit-Fe Fumarate-FA ( MULTIVITAMIN PLUS IRON) 27-1 MG TABS Take 1 tablet by mouth daily. Active levothyroxine (SYNTHROID/LEVOTH ROID) 88 MCG tablet Take 88 mcg by mouth daily. Active Vitamin D, Cholecalciferol, 10 MCG (400 UNIT) CHEW Take 1 tablet by mouth daily. Active acetaminophen (TYLENOL) 325 MG tabletIndications :, delivered Take 2 tablets (650 mg) by mouth every 4 hours as needed for mild pain or fever (greater than or equal to 38 C /100.4 F (oral) or 38.5 C/ 101.4 F (core).). 4 Active docusate sodium (COLACE) 100 MG capsuleIndication s:, delivered Take 1 capsule (100 mg) by mouth 2 times daily as needed for constipation . 4 Active ibuprofen (ADVIL/MOTRIN) 800 MG tabletIndications :, delivered Take 1 tablet (800 mg) by mouth every 6 hours as needed for other (cramping). 20 tablet 4 Active Active Problems Problem Noted Date Diagnosed Date 08/11/2018 Vaginal delivery 08/04/2016 Immunizations Immunization Administration Dates Next Due DTaP, Unspecified 07/24/2016 Flu, Unspecified 07/24/2016 Social History Tobacco Use Types Packs/Day Years Used Date Smoking Tobacco: Never Smokeless Tobacco: Never Alcohol Use Standard Drinks/Week Comments No 0 (1 standard drink = 0.6 oz pur e alcohol) Dwight Depression Scale Answer Date Recorded Dwight Depression Scale Total 7 02/06/2024 The thought of harming myself has occurred to me . Never 02/06/2024 Adolescent Education Answer Date Record ed Getting School Help Needed Not on file 01/09 Food Insecurity Answer Date Recorded Within the past 12 months, d id you worry that your food would run out before you got money to buy more? No 02/05/2024 Within the past 12 months, d id the food you bought just not last and you didn t have money to get more? No 02/05/2024 Housing Stability Answer Date Recorded Do you have housing? (Myrtle g is defined as stable permanent housing and does not include staying outside in a car, in a tent, in an abandoned building, in an overnight nursing home, or couch-surfing.) Yes 02/05/2024 Are you worried about losing your housing? No 02/05/2024 Financial Resource Strain Answer Date R ecorded Within the past 12 months, h ave you or your family members you live with been unable to get utilities (heat, electricity) when it was really needed? No 02/05/2024 Transportation Needs Answer Date Record ed Within the past 12 months, h as lack of transportation kept you from medical appointments, getting your medicines, non-medical meetings or appointments, work, or from getting things that you need? No 02/05/2024 Interpersonal Safety Answer Date Record ed Do you feel physically and e motionally safe where you currently live? Yes 02/04/2024 Within the past 12 months, h ave you been hit, slapped, kicked or otherwise physically hurt by someone? No 02/04/2024 Within the past 12 months, h ave you been humiliated or emotionally abused in other ways by your partner or ex-partner? 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 Gender Identity Not on file Sexual Orientation Not on file Last Filed Vital Signs Vital Sign Reading Time Taken Comments Blood Pressure 116/76 02/06/2024 8:22 AM CDT Pulse 94 02/06/2024 8:22 AM CDT Temperature 36.4 C (97.6 F) 02/06/2024 8:22 AM CDT Respiratory Rate 16 02/06/2024 8:22 AM CDT Oxygen Saturation 98% 02/06/2024 8:22 AM CDT Inhaled Oxygen Concentration - - Weight 81.6 kg (180 lb) 02/04/2024 11:22 AM CDT Height 167.6 cm (5' 6) 02/04/2024 11:22 AM CDT Body Mass Index 29.05 02/04/2024 11:22 AM CDT Plan of Treatment Health Maintenance Due Date Last Done Comments ADVANCE CARE PLANNING 1985 ANNUAL REVIEW OF HM ORDERS 1985 YEARLY PREVENTIVE VISIT 1988 HEPATITIS C SCREENING 2003 HEPATITIS B VACCINE (1 of 3 - 19+ 3-dose series) 2004 PAP 01/19/2021 01/19/2018, 05/2017, 03/01/2015 DIABETES SCREENING 09/24/2021 09/24/2018 TSH W/FREE T4 REFLEX 03/11/2022 03/11/2021, 11/19/2020, 09/11/2020, Additional history exists COVID-19 VACCINE ( season) 2023 PHQ-2 (once per calendar year) 2024 INFLUENZA VACCINE (Season Ended) 2024 07/24/2016 DTAP/TDAP/TD VACCINE (3 - Tdap) 07/24/2026 07/24/2016, 07/24/2016, 09/21/1998 ZOSTER VACCINE (1 of 2) 2035 HIV SCREENING Completed 06/22/2023, 07/2019, 12/01/2017, Additional history exists HPV VACCINE Aged Out No longer eligi ble based on patient's age to complete this topic MENINGITIS VACCINE Aged Out No longer eligible based on patient's age to complete this topic PNEUMOCOCCAL VACCINE: PEDIATRICS (0 to 5 YEARS) AND AT-RISK PATIENTS (6 to 49 YEARS) Aged Out No longer eligible based on patient's age to complete this topic Procedures Procedure Name Priority Date/Time Associated Diagnosis Comments HIV 1&2 ANTIBODY (EXTERNAL RESULT) Routine 06/22/2023 TSH Routine 03/11/2021 2:00 PM SERVICE COUNSELOR Hypothyroidism, unspecified COMPREHENSIVE METABOLIC PANEL Routine 09/24/2018 5:16 PM CDT GYNECOLOGIC CYTOLOGY Routine 01/19/2018 4:47 PM CDT from Last 3 Months or Most Recently Relevant to Health Maintenance Results * HIV-1 Antibody (External Result) (06/22/2023) HIV 1&2 Antibody (External) Nonreactive Nonreactive NA LABORATORY 06/22/2023 us Rogelio Davila MD LAB - HIM EXTERNAL RESUL T Final Result Performing Organization Address City/[facility]/ZIP Co de Phone Number NA LABORATORY [facility] Lab - [address] Lab - Room [address] [place] [address] * (ABNORMAL) TSH (03/11/2021 2:00 PM SERVICE COUNSELOR) Pathologist [facility] [place] TSH 160.34(H) 0.30 - 5.00 uIU/mL 03/11/2021 10:39 PM SERVICE COUNSELOR [facility] Blood BLOOD SPECIMEN / Unknown Venipuncture / Unknown 03/11/2021 2:00 PM SERVICE COUNSELOR 03/11/2021 8:44 PM SERVICE COUNSELOR us Anahi Dewitt MD LAB - BLOOD ORDERABLES F inal Result [facility] [address] [phone] * Comprehensive metabolic panel (09/24/2018 5:16 PM CDT) Pathologist [facility] [place] Sodium 140 136 - 145 mmol/L 09/24/2018 9:15 PM CDT [facility] Potassium 3.8 3.5 - 5.0 mmol/L 09/24/2018 9:15 PM CDT [facility] Chloride 107 98 - 107 mmol/L 09/24/2018 9:15 PM CDT [facility] Carbon Dioxide (CO2) 23 22 - 31 mmol/L 09/24/2018 9:15 PM CDT [facility] Anion Gap 10 5 - 18 mmol/L 09/24/2018 9:15 PM CDT [facility] Glucose 80 70 - 125 mg/dL 09/24/2018 9:15 PM T [facility] Urea Nitrogen 19 8 - 22 mg/dL 09/24/2018 9:15 PM T [facility] Creatinine 0.75 0.60 - 1.10 mg/dL 09/24/2018 9:15 PM CDT [facility] GFR Estimate If Black >60 >60 mL/min/1.7 3m2 09/24/2018 9:15 PM CDT [facility] GFR Estimate >60 >60 mL/min/1.7 3m2 09/24/2018 9:15 PM CDT [facility] Bilirubin Total 0.5 0.0 - 1.0 mg/dL 09/24/2018 9:15 PM CDT [facility] Calcium 9.6 8.5 - 10.5 mg/dL 09/24/2018 9:15 PM CDT [facility] Protein Total 7.5 6.0 - 8.0 g/dL 09/24/2018 9:15 PM T [facility] Albumin 4.2 3.5 - 5.0 g/dL 09/24/2018 9:15 PM CDT [facility] Alkaline Phosphatase 86 45 - 120 U/L 09/24/2018 9:15 PM CDT [facility] AST 29 0 - 40 U/L 09/24/2018 9:15 PM T [facility] ALT 28 0 - 45 U/L 09/24/2018 9:15 PM CDT [facility] Blood specimen (specimen) 09/24/2018 5:16 PM CDT 09/24/2018 7:42 PM CDT Narrative [facility] - 09/24/2018 9:15 PM CDT Fasting Glucose reference range is 70-99 mg/dL per [place] Diabetes Association (ADA) guidelines. us Radha Draper MD LAB - BLOOD ORDERABLES Yohana l Result [facility] [address] [address], [facility] [address] [address] * Gynecologic Cytology (PAP Smear) (01/19/2018 4:47 PM CDT) Case Report Gynecologic Cytology Report Case: [id number] Authorizing Provider: Radha Draper MD Collected: 01/19/2018 1647 First Screen: CARO Patel Received: 01/20/2018 0853 (ASCP) Specimen: SUREPATH PAP, SCREENING, Endocervical/cerv ical 01/21/2018 11:12 AM CDT [facility] Interpretation Negative for squamous intraepithelial lesion or malignancy 01/21/2018 11:12 AM CDT [facility] Result Flag Normal Normal 01/21/2018 11:12 AM CDT [facility] Specimen Adequacy Satisfactory for evaluation, endocervical/parmar sformation zone component present Partially obscuring inflammation 01/21/2018 11:12 AM CDT [facility] Reflex Testing Yes if ASCUS 01/22/20 18 11:12 AM CDT [facility] High Risk? No 01/21/2018 11:12 AM CDT [facility] LMP/Menopause Date unknown 01/21/2018 11:12 AM CDT [facility] Abnormal Bleeding No 018 11:12 AM CDT [facility] Patient Status 01/21/2018 11:12 AM CDT [facility] Control/Hormones None 01/21/2018 11:12 AM CDT [facility] Previous Normal unknown 8 11:12 AM CDT [facility] Previous Abnormal? unknown 01/21/2018 11:12 AM CDT [facility] Cervical Appearance normal 01/21/2018 11:12 AM CDT [facility] Specimen from genital system (specimen) CERVIX UTERI STRUCTURE / Unknown 01/19/2018 4:47 PM CDT 01/20/2018 8:53 AM CDT Radha GARCIA - TARYN AP Final Resul t [facility] [address] [address], [facility] [address] [address] from Last 3 Months or Most Recently Relevant to Health Maintenance Insurance [facility] [facility] [place] [id number] [facility] Advance Directives For more information, please contact: [phone] * Full Code (Latest Code Status on File) Date Activated Date Inactivated Comments 02/04/2024 11:30 AM 02/06/2024 3:59 PM All basic and advanced life-sustaining interventions are performed as appropriate Question Answer Comments Code status determined by: Discussion with omar nt/ legal decision maker Care Teams Mechanical Meter Tester Relationship Specialty Start Date End Date Radha Draper MD [address] [facility] [address] [place] [address] PCP - General Family Practice 03/24/18
--- OUTSIDE RECORDS SUMMARY | 2024-10-09 14:52 | XMS_ITS | Encounter Summary ---
Author Organization Start Address [address] [place] [address]. 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 [address] [place] [address] PCP - General Family Practice 03/24/18 documented as of this encounter
--- OUTSIDE RECORDS SUMMARY | 2024-10-09 14:52 | XMS_ITS | Encounter Summary ---
Author Organization [place] Address [facility] [place] [address] Care Team Providers Care Treasurer Savings Bank Name Role Phone Radha Draper MD Primary Care Provider Reason for Visit * Reason Comments Ultrasound marginal cord insert ion Encounter Details Date Type Department Care Team (Late st Contact Info) Description 03/31/[address] 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
[2024-10-09 15:01] VITALS: BP 110/86; PULSE 97; RESP 18; TEMP 36.7; O2SAT 98; BMI 25.8
--- NOTE | 2024-10-09 16:02 | ED.UPPEXIN ---
HPI - Extremity Injury (Upper) General Date Seen: 10/09/24 Chief Complaint: Extremity Pain/Injury, Upper Stated Complaint: LEFT SHOULDER PAIN/CANNOT MOVE Time Seen by Provider: 10/09/24 15:09 Source: patient Mode of arrival: ambulatory Limitations: no limitations History of Present Illness HPI narrative: Patient is a delightful 39-year-old female who has left shoulder chronic pain, that is acutely worse in the last week, any sort of lifting activity causes her pain so much that she drops objects involving her left arm. She is here today with her , this is confounded by the fact she is 5 weeks . It aches at night her throbs at night, no numbness tingling weakness no known injury falls she denies any neck pain associated with this fevers chills or sweats or any other alarm symptoms. complaint: injury to: left and shoulder Onset (ago): month(s) Other injuries: none Hand dominance: Right Place: home Severity: moderate Relieving factors: cold therapy and medication Exacerbating factors: none Associated symptoms: denies other symptoms Related Data Home Medications ?Medication ?Instructions ?Recorded ?Confirmed thyroid (pork) 90 mg tablet (PRODUCT SUPPORT ENGINEER 90 mg PO DAILY 07/02/22 07/02/22 Thyroid) Allergies Allergy/AdvReac Type Severity Reaction Status Date / Time No Known Drug Allergies Allergy Verified 07/02/22 19:05 Review of Systems Status of ROS: Reports: 10 or more systems reviewed and unremarkable except as noted in History and below [facility] Medical History Hypothyroid ?E03.9 - Hypothyroidism, unspecified (ICD-10) Social History Smoking Status: Never smoker Do you use any of these nicotine containing products: None How often do you have a drink containing alcohol: monthly or less AUDIT-C Alcohol total score: 1 Non-prescribed substance use: denies use Exam Narrative: Exam Narrative: On examination her shoulders are symmetrical, internal external rotation is normal. On she is tender over the bicipital tendon, any sort of flexion of her biceps causes some discomfort, lots of positive rotator cuff signs in her left shoulder, neck is full range of motion of flexion extension lateral flexion rotation no palpable tenderness noted. Pulses are normal in her left upper extremity, she is right-hand dominant. No edema, normal sensation Const: Vital Signs, click to edit/add: Vital Signs - 24 hr 10/09/24 15:01 Temperature 98.1 F Pulse Rate [Pulse Oximeter] 97 Respiratory Rate 18 Blood Pressure [Ri ght Upper Arm] 110/86 Pulse Oximetry 98 Oxygen Delivery Me thod Room Air Course Vital Signs Vital signs: Initial Vital Signs Temperature 98.1 F 10/09/24 15:01 Temperature Source Temporal Artery Scan 10/09/24 15:01 Pulse Rate 97 10/09/24 15:01 Respiratory Rate 18 10/09/24 15:01 Blood Pressure 110/86 10/09/24 15:01 Blood Pressure Mean 94 10/09/24 15:01 Blood Pressure Position Sitting 10/09/24 15:01 Pulse Oximetry 98 10/09/24 15:01 Oxygen Delivery Method Room Air 10/09/24 15:01 Vital Signs Temperature 98.1 F 10/09/24 15:01 Pulse Rate 97 10/09/24 15:01 Respiratory Rate 18 10/09/24 15:01 Blood Pressure 110/86 10/09/24 15:01 Pulse Oximetry 98 10/09/24 15:01 Oxygen Delivery Method Room Air 10/09/24 15:01 Temperature 98.1 F 10/09/24 15:01 Pulse Rate 97 10/09/24 15:01 Respiratory Rate 18 10/09/24 15:01 Blood Pressure 110/86 10/09/24 15:01 Pulse Oximetry 98 10/09/24 15:01 Oxygen Delivery Method Room Air 10/09/24 15:01 MDM - Extremity Injury (Upper) MDM Narrative Medical decision making narrative: This is not a dislocation, no think it is bursitis, I think it more likely is rotator cuff worsening condition, I did check the TRAFFIC ATTENDANT she has no prescriptions for anything, we did make her appointment for Orthopedics, as they have multiple options including physical therapy MRI imaging I did not x-ray her shoulder as there is really no history of fall or trauma and she moves it normally it is not dislocated. I think a reasonable course here would be use of some oxycodone, along with acetaminophen in ice, and follow-up with orthopedics. Sling is not indicated, Codman's motion is discussed Medical Records Attestation: I reviewed the patient's medical records. Discharge Plan Discharge Clinical Impression: Chronic shoulder pain Patient Disposition: Home w/ Parent or Adult Condition: Stable Instructions: Opioid Safety (ED), Arm Pain (ED), Shoulder Impingement Syndrome (ED) Additional Instructions: Light activity is good, I also recommend ice, buying the ice pack we discussed, for breakthrough pain you can use the oxycodone which I gave you, Tylenol 1 g every 8 hours is also suggested in very safe in , you cannot use any Advil Aleve her aspirin products, follow-up with Orthopedics, they are excellent for this they may consider cortisone shot an MRI and plus or minus physical therapy. Follow up orthopedic appointment is scheduled on 10/11 with a 10:40am appointment time. If you have any questions or need to reschedule, please call [phone]. [facility] [address] [place] [id number] Activity Level: Light activity Prescriptions: No Action thyroid (pork) [PRODUCT SUPPORT ENGINEER Thyroid] 90 mg tablet 90 mg PO DAILY Follow Up/Referrals: Provider,Not a Local [Primary Care Provider, Family Practice] Stand Alone Forms: Superth Info Instructions
== END 2024-10-09 15:55 | disposition home or self-care (01) ==
LOC: ED 15:45
PROVIDERS: Emergency Provider Family Medicine
DX: M25.512 Pain in left shoulder (principal); G89.29 Other chronic pain
CPT/HCPCS: 99283; 99284

== ENCOUNTER 2024-11-03 08:15 | Outpatient (CLI) | payer OTHER, SELFPAY ==
--- NOTE | 2024-11-03 08:15 | CRLHL7_ITS ---
For Patients: As a result of the Century Cures Act, medical imaging exams and procedure reports are released immediately into your electronic medical record. You may view this report before your referring provider. If you have questions, please contact your health care provider. OB ULTRASOUND LESS THAN 14 WEEKS, 11/03/2024 CLINICAL HISTORY: Dating and viability. COMPARISON: None. TECHNIQUE: Real time guevara scale imaging of the fetus was performed. Transvaginal imaging performed. FINDINGS: LMP: 08/30/2024. XENA by LMP: 06/06/2025. GA: 9 weeks 2 days. CRL: 2.5 cm, 9 weeks 1 day. XENA: 06/07/2025. FHR: #1 185 bpm. #2 178 bpm. GEST SAC: 4.2 cm, appears WNL. YOLK SAC: 4.9 mm, appears WNL. RIGHT OV: WNL 3.7 x 2.5 x 2.3 cm. CL. LEFT OV: WNL 3.1 x 1.8 x 1.9 cm. IMPRESSION: 1. Single living intrauterine measuring 9 weeks 1 day and sonographic due date 06/07/2025. 2. Left-sided subchorionic hemorrhage measures 2.9 x 0.7 x 0.9 cm. 3. Small intramural fibroids are present which measure 9 x 5 x 9 mm and 8 x 7 x 8 mm. 4. Corpus luteal cyst right ovary. 5. Yolk sac is upper limits of normal at 5.1 mm. Posterior edema may be present. This should be followed up in 2-3 weeks. Mauri Phelan M.D. Diagnostic Radiologist [email or web address] Transcribed: 10:51 am DW/Dictated by: Mauri Phelan MD @ 11/03/2024 9:26:00 AM (Electronically Signed)
== END 2024-11-03 08:16 | disposition home or self-care (01) ==
LOC: US 08:17
PROVIDERS: Visit Provider Advanced Practice Midwife
DX: Z34.91 Encounter for supervision of normal pregnancy, unspecified, first trimester (principal); O20.9 Hemorrhage in early pregnancy, unspecified; O34.81 Maternal care for other abnormalities of pelvic organs, first trimester; N83.11 Corpus luteum cyst of right ovary; O34.10 Maternal care for benign tumor of corpus uteri, unspecified trimester; D25.1 Intramural leiomyoma of uterus; Z3A.09 9 weeks gestation of pregnancy
CPT/HCPCS: 76817; 82565; 82570; 83021; 84156; 84443; 84450; 84460; 84520; 86592; 86703; 86704; 86706; 86762; 86787; 86803; 86850; 86900; 86901; 87086; 87340

== ENCOUNTER 2024-11-24 06:30 | Outpatient (CLI) | payer OTHER, SELFPAY | END 2024-11-24 06:31 | disposition home or self-care (01) | LOC: NFLDREF 11-28 15:05 | PROVIDERS: Visit Provider Advanced Practice Midwife | DX: Z34.81 Encounter for supervision of other normal pregnancy, first trimester (principal) | CPT/HCPCS: 82570; 84156 ==

== ENCOUNTER 2024-11-24 08:16 | Outpatient (CLI) | payer OTHER, SELFPAY ==
--- NOTE | 2024-11-24 08:15 | CRLHL7_ITS ---
For Patients: As a result of the Cures Act, medical imaging exams and procedure reports are released immediately into your electronic medical record. You may view this report before your referring provider. If you have questions, please contact your health care provider. OB ULTRASOUND INDICATION: Follow-up viability. TECHNIQUE: Real time guevara scale imaging of the fetus was performed. Transabdominal and transvaginal. LMP: 08/30/2024. XENA by LMP: 06/06/2025. GA: 12 w, 2 d. Previous US: Yes 06/06/2024. XENA by US: 06/07/2025. CRL: 6.5 cm. 12 w 6 d. XENA: 06/02/2025. FHR: 165-178 BPM. Gestational sac: 7.2 cm. Appears within normal limits. Yolk sac: N/V. Right ovary: Within normal limits. 4.7 x 1.7 x 2.7 cm. Left ovary: Within normal limits. 2.5 x 1.5 x 1.7 cm. IMPRESSION: 1. Sonographic gestational age 12 weeks 6 days and sonographic due date 06/02/2025. 2. Subchorionic hemorrhage measures 2.5 x 1.3 x 1.9 cm, previously measuring 2.9 x 0.7 x 0.9 cm. 3. Resolution of the suspected edema. Mauri Phelan M.D. Diagnostic Radiologist [email or web address] RADHA/luz maria JR/Dictated by: Mauri Phelan MD @ 11/24/2024 10:19:00 AM (Electronically Signed)
== END 2024-11-24 08:17 | disposition home or self-care (01) ==
LOC: US 08:16
PROVIDERS: Visit Provider Advanced Practice Midwife
DX: Z36.9 Encounter for antenatal screening, unspecified (principal); O20.9 Hemorrhage in early pregnancy, unspecified; Z3A.12 12 weeks gestation of pregnancy
CPT/HCPCS: 76816; 76817

== ENCOUNTER 2025-01-11 07:05 | Outpatient (CLI) | payer OTHER, SELFPAY | END 2025-01-11 07:06 | disposition home or self-care (01) | LOC: US 07:06 | PROVIDERS: Visit Provider Advanced Practice Midwife | DX: O09.522 Supervision of elderly multigravida, second trimester (principal); Z3A.19 19 weeks gestation of pregnancy | CPT/HCPCS: 76811 ==

== ENCOUNTER 2025-01-17 16:50 | Outpatient (CLI) | payer OTHER, SELFPAY | END 2025-01-17 16:51 | disposition home or self-care (01) | LOC: NFLDREF 01-19 10:33 | PROVIDERS: Visit Provider Advanced Practice Midwife | DX: E03.9 Hypothyroidism, unspecified (principal); Z34.92 Encounter for supervision of normal pregnancy, unspecified, second trimester | CPT/HCPCS: 84443 ==

== ENCOUNTER 2025-03-13 07:50 | Outpatient (CLI) | payer OTHER, SELFPAY | END 2025-03-13 07:51 | disposition home or self-care (01) | LOC: NFLDREF 03-16 17:48 | PROVIDERS: Visit Provider Advanced Practice Midwife | DX: O09.513 Supervision of elderly primigravida, third trimester (principal) | CPT/HCPCS: 82728; 84443; 86592 ==

== ENCOUNTER 2025-04-10 12:53 | Outpatient (CLI) | payer OTHER, SELFPAY ==
--- NOTE | 2025-04-10 13:00 | CRLHL7_ITS ---
For Patients: As a result of the Century Cures Act, medical imaging exams and procedure reports are released immediately into your electronic medical record. You may view this report before your referring provider. If you have questions, please contact your health care provider. OB ULTRASOUND FOLLOW-UP GROWTH TRANSABDOMINAL Clinical History: LMP: 08/30/2024. XENA by LMP: 06/06/2025. GA: 31 w, 6 d. Single. Comparison: 01/11/2025, 11/24/2024, 11/03/2024. INDICATION: Advanced maternal age. TECHNIQUE: Real time guevara scale imaging of the fetus was performed. Transabdominal imaging performed. CERVIX: Not visualized. POSITIONING: Vertex. AMNIOTIC FLUID: 4.2 cm SDP (N: greater than 2 x 1 cm) PLACENTA: Technique: Transabdominal. PLACENTA POSITION: Posterior, right wall. DOPPLER: heart rate: 138 bpm. BIOMETRY: BPD: 8.4 cm. 33 w, 5 d, 88.5 percent. HC: 30.4 cm. 33 w, 6 d, 66.7 percent. AC: 29.1 cm. 33 w, 1 d, 81.8 percent. FL: 6.0 cm. 31 w, 3 d, 23.9 percent. FL/AC ratio: 20.7 percent. HC/AC ratio: 1.1. EFW: 2033 g. Weight: 4 lbs, 8 oz. age by this US: 33 w, 0 d. XENA by this US: 05/29/2025. Percentile by XENA: 67.3 percent. IMPRESSION: 1. Sonographic gestational age 33 weeks 0 days and sonographic due date 05/29/2025. Sonographic age is 8 days ahead of the clinical age. 2. Estimated weight 67th percentile. Abdominal circumference 82nd percentile. Mauri Phelan M.D. Diagnostic Radiologist [email or web address] SP/Dictated by: Mauri Phelan MD @ 04/10/2025 6:01:00 PM (Electronically Signed)
== END 2025-04-10 12:54 | disposition home or self-care (01) ==
LOC: US 12:53
PROVIDERS: Visit Provider Advanced Practice Midwife
DX: Z34.83 Encounter for supervision of other normal pregnancy, third trimester (principal); Z3A.33 33 weeks gestation of pregnancy
CPT/HCPCS: 76816